=== PATIENT | male | born 1950 | race Hispanic/Latino ===

== ENCOUNTER 2019-02-15 09:27 | Emergency (ER) | payer MEDICARE ==
[~2019-02-15] VITALS: Ht 172.7 cm; Wt 80.0 kg
[~2019-02-15 09:27] MED LIST: ACCOLATE20 MG PO; ALLOPURINOL100 MG PO; ALPRAZOLAM0.5 MG PO; AMLODIPINE5 MG PO; ASPIRIN CHEWABL81 MG OR; ATIVAN0.5 MG PO; COLCHICINE0.6 MG PO; LOPID600 MG PO; LOSARTAN POT25 MG PO; SINGULAIR 10 MG10 MG PO; TESSALON PER100 MG PO; TOPROL XL PO; TRICOR145 MG PO; ZITHROMAX250 MG PO; ZYLOPRIM100 MG PO
[2019-02-15 10:23] LABS: URINE BILIRUBIN - DIPSTICK NEGATIVE (NEGATIVE); URINE BLOOD DIPSTICK NEGATIVE (NEGATIVE); URINE COLOR YELLOW; URINE GLUCOSE - DIPSTICK NEGATIVE (NEGATIVE); URINE KETONE NEGATIVE (NEGATIVE); URINE LEUK ESTERASE NEGATIVE (NEGATIVE); URINE NITRITE - DIPSTICK NEGATIVE (Negative); URINE PROTEIN - DIPSTICK NEGATIVE (NEG-TRACE); URINE SPECIFIC GRAVITY 1.025; URINE UROBILINOGEN - DIPSTICK 0.2 E.U./dL (0.2)
[2019-02-15 10:25] LABS: HEMATOCRIT 45.7 % (39.0-50.0); HEMOGLOBIN 14.9 g/dl (14.0-18.0); IMMATURE GRANULOCYTES 0.6 % (0.0-5.0); MEAN CELL VOLUME 89.6 fL CALC (80.0-100.0); MEAN CORPUSCULAR HGB 29.2 pG CALC (26.0-32.0); MEAN CORPUSCULAR HGB CONC 32.6 g/L CALC (32.0-36.0); NEUT# 6.78 thou/uL (1.82-7.42); RED BLOOD COUNT 5.1 mill/uL (4.70-6.10)
[2019-02-15 10:43] LABS: ALBUMIN 3.8 g/dL (3.2-5.0); ALKALINE PHOSPHATASE 75 u/l (38-126); ANION GAP 14 (6-22 (CALC)); BILIRUBIN, TOTAL 0.8 mg/dL (0.0-1.4); BUN 15 mg/dL (8-23); BUN/CREATININE RATIO 15 (12-20 (CALC)); CARBON DIOXIDE 26 mmol/l (22-30); CHLORIDE 104 mmol/l (95-108); GFR > 60 ML/MIN (>=60 (CALC)); GFR FOR AFR.AMER. > 60 ML/MIN (>=60 (CALC)); POTASSIUM 4.6 mmol/l (3.5-5.1); SGOT/AST 16 u/l (19-48); SODIUM 140 mmol/l (137-146); TOTAL PROTEIN 6.9 g/dL (6.3-8.2)
[2019-02-15] MEDS ORDERED: CIPROFLOXACN500 MG PO (13:56)
[2019-02-15] MEDS ORDERED: METRONIDAZOL500 MG PO (13:56)
[2019-02-15 13:58] VITALS: BP 151/75
== END 2019-02-15 14:09 | disposition home or self-care (01) ==
LOC: ED 09:27
PROVIDERS: Emergency Medicine
DX: K57.32 Diverticulitis of large intestine without perforation or abscess without bleeding (principal); R10.32 Left lower quadrant pain
CPT/HCPCS: Q9967

== ENCOUNTER 2021-12-21 08:29 | Emergency (ER) | payer MEDICARE ==
[~2021-12-21] VITALS: Ht 172.7 cm; Wt 76.0 kg
[~2021-12-21 08:29] MED LIST changes: +AF-MIGRAIN1 PO; +CIPROFLOXACN500 MG PO; +METRONIDAZOL500 MG PO; +NITROGLYCERIN 5 MG/ML IV; +NORVASC10 M1 PO; +PANTOPRAZOLE SO40 M1 PO
[2021-12-21] MEDS ORDERED: ASPIRIN81 MG PO (08:50)
[2021-12-21 09:20] LABS: URINE BILIRUBIN - DIPSTICK NEGATIVE (NEGATIVE); URINE BLOOD DIPSTICK NEGATIVE (NEGATIVE); URINE COLOR YELLOW; URINE GLUCOSE - DIPSTICK NEGATIVE (NEGATIVE); URINE KETONE NEGATIVE (NEGATIVE); URINE LEUK ESTERASE NEGATIVE (NEGATIVE); URINE PH 5.5 (4.5-8.0); URINE PROTEIN - DIPSTICK NEGATIVE (NEG-TRACE); URINE SPECIFIC GRAVITY 1.025; URINE UROBILINOGEN - DIPSTICK 0.2 E.U./dL (0.2)
[2021-12-21 09:21] LABS: URINE NITRITE - DIPSTICK NEGATIVE (Negative)
[2021-12-21 09:22] LABS: HEMATOCRIT 48.4 % (39.0-50.0); HEMOGLOBIN 15.3 g/dl (14.0-18.0); IMMATURE GRANULOCYTES 0.3 % (0.0-5.0); MEAN CELL VOLUME 89.1 fL CALC (80.0-100.0); MEAN CORPUSCULAR HGB 28.2 pG CALC (26.0-32.0); MEAN CORPUSCULAR HGB CONC 31.6 g/dL CAL (32.0-36.0); NEUT# 6.84 thou/uL (1.82-7.42); RED BLOOD COUNT 5.43 mill/uL (4.70-6.10); RED CELL DISTRI WIDTH 13.8 % (11.5-15.5)
[2021-12-21 09:41] LABS: ALBUMIN 3.9 g/dL (3.2-5.0); ALKALINE PHOSPHATASE 95 u/l (38-126); ANION GAP 10 (6-22 (CALC)); BILIRUBIN, TOTAL 0.7 mg/dL (0.0-1.4); BUN 18 mg/dL (8-23); BUN/CREATININE RATIO 16 (12-20 (CALC)); CARBON DIOXIDE 28 mmol/l (22-30); CHLORIDE 104 mmol/l (95-108); CREATININE 1.1 mg/dL (0.7-1.3); GFR > 60 ML/MIN (>=60 (CALC)); GFR FOR AFR.AMER. > 60 ML/MIN (>=60 (CALC)); SGOT/AST 29 u/l (19-48); SODIUM 138 mmol/l (137-146); TOTAL PROTEIN 7.6 g/dL (6.3-8.2)
[2021-12-21 11:42] VITALS: BP 132/62
== END 2021-12-21 11:58 | disposition home or self-care (01) ==
LOC: ED 08:29
DX: K40.90 Unilateral inguinal hernia, without obstruction or gangrene, not specified as recurrent (principal); I10 Essential (primary) hypertension; M10.9 Gout, unspecified
CPT/HCPCS: Q9967

== ENCOUNTER 2022-01-09 08:11 | Day surgery (SDC) | payer MEDICARE ==
[~2022-01-09 08:11] MED LIST changes: +ASPIRIN81 MG PO
[2022-01-09] MEDS ORDERED: PERCOCET 5/321 COMBO PO (10:35)
[2022-01-09 11:12] VITALS: BP 135/73
== END 2022-01-09 11:28 | disposition home or self-care (01) ==
LOC: ORM 08:11
PROVIDERS: ATTEND Surgery
PROC: 0YU64JZ Supplement Left Inguinal Region with Synthetic Substitute, Percutaneous Endoscopic Approach (ICD-10-PCS; principal; 2022-01-09)
DX: K40.90 Unilateral inguinal hernia, without obstruction or gangrene, not specified as recurrent (principal); D17.6 Benign lipomatous neoplasm of spermatic cord; I10 Essential (primary) hypertension
CPT/HCPCS: C1781; J0131; J1100

== ENCOUNTER 2022-02-14 14:12 | Emergency (ER) | payer MEDICARE ==
[~2022-02-14] VITALS: Ht 172.7 cm; Wt 84.2 kg
[~2022-02-14 14:12] MED LIST changes: +PERCOCET 5/321 COMBO PO
[2022-02-14 14:43] LABS: GFR > 60 ML/MIN (>=60 (CALC)); GFR FOR AFR.AMER. > 60 ML/MIN (>=60 (CALC))
[2022-02-14 14:45] LABS: HEMATOCRIT 46.3 % (39.0-50.0); HEMOGLOBIN 14.6 g/dl (14.0-18.0); IMMATURE GRANULOCYTES 0.2 % (0.0-5.0); MEAN CELL VOLUME 88.4 fL CALC (80.0-100.0); MEAN CORPUSCULAR HGB 27.9 pG CALC (26.0-32.0); MEAN CORPUSCULAR HGB CONC 31.5 g/dL CAL (32.0-36.0); NEUT# 5.97 thou/uL (1.82-7.42); RED BLOOD COUNT 5.24 mill/uL (4.70-6.10); RED CELL DISTRI WIDTH 13.9 % (11.5-15.5)
[2022-02-14 14:57] LABS: PROTHROMBIN TIME 10.6 SECONDS (9.0-12.5)
[2022-02-14 14:59] LABS: ALBUMIN 4.1 g/dL (3.2-5.0); ALKALINE PHOSPHATASE 100 u/l (38-126); ANION GAP 10 (6-22 (CALC)); BILIRUBIN, TOTAL 0.5 mg/dL (0.0-1.4); BUN 18 mg/dL (8-23); BUN/CREATININE RATIO 17 (12-20 (CALC)); CARBON DIOXIDE 27 mmol/l (22-30); CHLORIDE 104 mmol/l (95-108); CREATININE 1.1 mg/dL (0.7-1.3); GFR > 60 ML/MIN (>=60 (CALC)); GFR FOR AFR.AMER. > 60 ML/MIN (>=60 (CALC)); POTASSIUM 4.1 mmol/l (3.5-5.1); SGOT/AST 29 u/l (19-48); SODIUM 137 mmol/l (137-146); TOTAL PROTEIN 7.9 g/dL (6.3-8.2)
[2022-02-14 15:06] VITALS: BP 121/88
[2022-02-14 15:23] LABS: URINE BILIRUBIN - DIPSTICK NEGATIVE (NEGATIVE); URINE BLOOD DIPSTICK NEGATIVE (NEGATIVE); URINE COLOR YELLOW; URINE GLUCOSE - DIPSTICK NEGATIVE (NEGATIVE); URINE KETONE NEGATIVE (NEGATIVE); URINE LEUK ESTERASE NEGATIVE (NEGATIVE); URINE PH 5.5 (4.5-8.0); URINE PROTEIN - DIPSTICK NEGATIVE (NEG-TRACE); URINE UROBILINOGEN - DIPSTICK 0.2 E.U./dL (0.2)
[2022-02-14 15:25] LABS: URINE NITRITE - DIPSTICK NEGATIVE (Negative)
[2022-02-14 15:30] VITALS: BP 138/82
[2022-02-14 15:46] VITALS: BP 138/82
== END 2022-02-14 15:49 | disposition short-term general hospital (02) ==
LOC: ED 14:12
PROVIDERS: Emergency Medicine
DX: I63.9 Cerebral infarction, unspecified (principal); G81.94 Hemiplegia, unspecified affecting left nondominant side; R29.810 Facial weakness; R47.1 Dysarthria and anarthria; R29.703 NIHSS score 3; I10 Essential (primary) hypertension; M10.9 Gout, unspecified; Z20.822 Contact with and (suspected) exposure to COVID-19
CPT/HCPCS: J3101; Q9967

== ENCOUNTER 2023-01-08 11:47 | Emergency (ER) | payer MEDICARE ==
[~2023-01-08] VITALS: Ht 172.7 cm; Wt 88.1 kg
[2023-01-08 13:12] VITALS: BP 115/67
[2023-01-08 13:30] VITALS: BP 124/71
[2023-01-08] MEDS ORDERED: VALSARTAN40 MG (13:42)
[2023-01-08] MEDS ORDERED: ELIQUIS5 MG PO (13:43)
[2023-01-08] MEDS ORDERED: CLOPIDOGREL75 MG PO (13:43)
[2023-01-08] MEDS ORDERED: METOPROL TAR25 MG PO (13:44)
[2023-01-08] MEDS ORDERED: ROSUVASTATIN CA20 MG (13:44)
[2023-01-08] MEDS ORDERED: PAXLOVID PO (13:57)
[2023-01-08 14:01] VITALS: BP 130/74
[2023-01-08 14:08] VITALS: BP 130/74
== END 2023-01-08 14:24 | disposition home or self-care (01) ==
LOC: ED 11:47
DX: U07.1 COVID-19 (principal); R05.9 Cough, unspecified; I10 Essential (primary) hypertension

== ENCOUNTER 2023-06-30 07:42 | Day surgery (SDC) | payer MEDICARE ==
[~2023-06-30] VITALS: Ht 175.3 cm; Wt 86.2 kg
[~2023-06-30 07:42] MED LIST changes: +ASPIRIN 81 LOW81 MG PO; +CLOPIDOGREL75 MG PO; +ELIQUIS5 MG PO; +METOPROL TAR25 MG PO; +PAXLOVID PO; +PROSCAR5 MG PO; +PROTONIX40 M2 PO; +ROSUVASTATIN CA20 MG; +SILODOSIN8 MG PO; +VALSARTAN40 MG
[2023-06-30 11:05] VITALS: BP 116/80
== END 2023-06-30 11:01 | disposition home or self-care (01) ==
LOC: ENDO 07:42
PROVIDERS: ATTEND Surgery
PROC: 0DBK8ZX Excision of Ascending Colon, Via Natural or Artificial Opening Endoscopic, Diagnostic (ICD-10-PCS; principal; 2023-06-30)
DX: Z12.11 Encounter for screening for malignant neoplasm of colon (principal); D12.2 Benign neoplasm of ascending colon; K57.30 Diverticulosis of large intestine without perforation or abscess without bleeding; K64.8 Other hemorrhoids; Z86.73 Personal history of transient ischemic attack (TIA), and cerebral infarction without residual deficits

== ENCOUNTER 2024-08-30 09:46 | Emergency (ER) | payer MEDICARE ==
[~2024-08-30] VITALS: Ht 175.3 cm; Wt 87.0 kg
[2024-08-30] VITALS (12 sets, daily range): BP systolic 97–166; BP diastolic 64–85
[~2024-08-30 09:46] MED LIST changes: +CLARITIN10 M1 PO; +NEURONTIN PO
[2024-08-30] MEDS ORDERED: ASPIRIN 81 MG/TAB PO ONE (09:50)
[2024-08-30 10:26] LABS: BASO% 0.8 % (0-3); HEMOGLOBIN 13.7 g/dl (14.0-18.0); IMMATURE GRANULOCYTES 0.5 % (0.0-5.0); MEAN CORPUSCULAR HGB 28.4 pG CALC (26.0-32.0); MEAN CORPUSCULAR HGB CONC 31.9 g/dL CAL (32.0-36.0); MONO% 7.6 % (2-13); NEUT# 6.73 thou/uL (1.82-7.42); NEUT% 63.1 % (42-76); RED BLOOD COUNT 4.83 mill/uL (4.70-6.10); RED CELL DISTRI WIDTH 14.9 % (11.5-15.5)
[2024-08-30 10:34] LABS: ALBUMIN 4.1 g/dL (3.2-5.0); BILIRUBIN, TOTAL 0.7 mg/dL (0.2-1.3); CREATININE 1.1 mg/dL (0.7-1.3); POTASSIUM 4.3 mmol/l (3.5-5.1); TOTAL PROTEIN 7.1 g/dL (6.3-8.2)
[2024-08-30] MEDS ORDERED: ONDANSETRON HCl 4 MG/2 ML SDV IV ONE (10:40)
[2024-08-30] MEDS ORDERED: NITROGLYCERIN 0.4 MG/TAB SL ONE (11:50)
[2024-08-30] MEDS ORDERED: PROMETHAZINE HCL 25 MG/ML AMP IM ONE (11:50)
[2024-08-30] MEDS ORDERED: ENOXAPARIN SODIUM 100 MG/ML SYR SC ONE (14:40)
== END 2024-08-30 15:47 | disposition left against medical advice (07) ==
LOC: ED 09:46
PROVIDERS: Family Medicine
DX: R07.9 Chest pain, unspecified (principal); I10 Essential (primary) hypertension; Z53.29 Procedure and treatment not carried out because of patient's decision for other reasons
CPT/HCPCS: Q9967